=== PATIENT | female | born 1980 | race Caucasian/White ===

== ENCOUNTER 2016-08-27 12:19 | Emergency (ER) | payer OTHER ==
[~2016-08-27] VITALS: Ht 167.6 cm; Wt 77.2 kg
[2016-08-27 12:31] VITALS: BP 101/65
[2016-08-27] MEDS ORDERED: IV NORMAL SALINE 1,000ML 1,000 ML IV SCH (13:19)
--- NOTE | 2016-08-27 13:19 | PHYS DOC ---
General Chief Complaint: abdominal discomfort Stated Complaint: abdominal pain Time Seen by MD: 12:22 Source: patient Exam Limitations: no limitations Problems: History of Present Illness Initial Comments Patient is a 36-year-old female currently 29 weeks gestation to the emergency department complaining of abdominal discomfort. 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 This she' s had no issues, she says the past 2-3 days she and her have been having abdominal discomfort. Her spouse has had diarrhea she's had some nausea but no vomiting or diarrhea. Due to her dyspepsia as she hasn't been eating or drinking much and today has some lower abdominal discomfort. She has noticed that her urine is dark today but denies odor/dysuria/hematuria. She denies any vaginal symptoms or contractions, denies chest pain shortness of breath headache or focal weakness.. Timing/Duration: other (2-3 days) Severity: mild Modifying Factors: worse with movement, improves with rest Associated Symptoms: loss of appetite, malaise, nausea/vomiting, other Allergies: Coded Allergies: No Known Drug Allergies (Unverified , 08/27/16) Past Medical History Medical History: other (asthma, preeclampsia) Surgical History: no surgical history Para: 2 : 3 LMP (Females 10-50): (29 wks) Social History Smoker: non-smoker Alcohol: occasionally (when not ) Drugs: none Review of Systems Constitutional: denies chills, denies diaphoresis, denies fever, malaise Respiratory: denies cough, denies shortness of breath, denies wheezing Cardiovascular: denies chest pain, denies palpitations, denies syncope Gastrointestinal: see HPI, abdominal pain, denies constipation, denies diarrhea , nausea, denies vomiting Genitourinary: see HPI Musculoskeletal: denies back pain, denies joint swelling, denies neck pain Psychiatric/Neurological: denies headache, denies numbness, denies paresthesia Hematologic/Lymphatic: denies blood clots, denies easy bleeding, denies easy bruising Physical Exam General Appearance: WD/WN, no apparent distress Eyes: bilateral eye normal inspection, bilateral eye PERRL, bilateral eye EOMI Ear, Nose, Throat: hearing grossly normal, normal ENT inspection, normal pharynx (mucous membranes dry, patient's lips are dry and cracked) Neck: non-tender, supple Respiratory: normal breath sounds, no respiratory distress Cardiovascular: normal peripheral pulses, regular rate, rhythm Gastrointestinal: normal bowel sounds, non tender, soft (gravid consistent with dates) Rectal: deferred Back: no vertebral tenderness, CVA tenderness (R) Extremities: normal range of motion, non-tender, normal inspection, no pedal edema, no calf tenderness 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 These findings along with R CVAT and reported history c/w right pyelonephritis. Patient is feeling much better and her color improved lips now moist after 1 L normal saline IV. I discussed hydration and treatment plan as well as signs and symptoms to monitor patient expressed agreement and understanding. Departure Time of Disposition: 14:23 Disposition: 01 HOME, SELF-CARE Diagnosis: Right Pyelonephritis, incidental Condition: STABLE Patient Instructions: Abdominal Pain During , [id number], Pyelonephritis, Adult, [id number] Additional Instructions: Continue vitamins as well as aggressive hydration with Gatorade and water. Rest, no strenuous activity. Prescription: Pravin Chapman Follow-up with your doctor on Thursday for urine culture results and recheck. Return to the ED with new or changing symptoms. ROWAN MCKEON DO Aug 27, 2016 13:19
[2016-08-27 13:47] LABS: BASO % 0 % (0-3); EOS % 0 % (0-3); HEMATOCRIT 37.3 % (36.0-47.0); HEMOGLOBIN 12.6 g/dL (12.0-15.5); LYMPH % 16 % (24-48); MEAN CORPUSCULAR HEMOGLOBIN 31 pg (25-35); MEAN CORPUSCULAR HGB CONC 34 g/dL (31-37); MEAN CORPUSCULAR VOLUME 93 fL (79-100); MONO # 0.5 x10^3/uL (0.0-1.1); MONO % 8 % (0-9); NEUT # 4.9 x10^3uL (1.8-7.7); NEUT % 76 % (31-73); PLATELET COUNT 181 x10^3/uL (140-400); RED BLOOD COUNT 4.01 x10^6/uL (3.50-5.40); RED CELL DISTRIBUTION WIDTH 13.8 % (11.5-14.5); WHITE BLOOD COUNT 6.5 x10^3/uL (4.0-11.0)
[2016-08-27 13:55] LABS: BACTERIA,URINE MOD /HPF (0-FEW); BILIRUBIN,URINE NEG (NEG); CLARITY,URINE HAZY; COLOR,URINE YELLOW; GLUCOSE,URINE NEG (NEG); NITRITE,URINE NEG (NEG); RBC,URINE 0 /HPF (0-2); SQUAMOUS EPITHELIAL CELL,UR MOD /LPF; UROBILINOGEN,URINE 2 mg/dL (0.2 mg/dL)
[2016-08-27 13:57] LABS: ALBUMIN 2.8 g/dL (3.4-5.0); ALBUMIN/GLOBULIN RATIO 0.8 (1.0-1.7); CALCIUM 8.6 mg/dL (8.5-10.1); CREATININE 0.5 mg/dL (0.6-1.0); GFR 140.4; POTASSIUM 3.6 mmol/L (3.5-5.1); TOTAL BILIRUBIN 0.4 mg/dL (0.2-1.0); TOTAL PROTEIN 6.5 g/dL (6.4-8.2)
[2016-08-27] MEDS ORDERED: NITROFURANTOIN MONOHYD/M-CRYST 100 MG CAPSULE. PO ONE (14:45)
[2016-08-27] MEDS ORDERED: ONDANSETRON ODT 4 MG TAB.RAPDIS PO ONE (14:45)
== END 2016-08-27 14:54 | disposition home or self-care (01) ==
LOC: ER 12:19
DX: O23.03 Infections of kidney in pregnancy, third trimester (principal); R10.9 Unspecified abdominal pain; O14.93 Unspecified pre-eclampsia, third trimester; J45.909 Unspecified asthma, uncomplicated; Z3A.29 29 weeks gestation of pregnancy
CPT/HCPCS: 36415; 80053; 81001; 85027; 87086; 94640; 96360; 99284-25; J7030

== ENCOUNTER 2019-01-25 09:34 | Emergency (ER) | payer OTHER ==
[~2019-01-25] VITALS: Ht 167.6 cm; Wt 71.2 kg
[2019-01-25] MEDS ORDERED: IPRATRPIUM/ALBUTEROL 0.5/2.5MG 3 ML NEBU. NEB ONE (10:15)
[2019-01-25 10:43] LABS: BASO % 1 % (0-3); EOS # 0.1 x10^3/uL (0.0-0.7); EOS % 2 % (0-3); HEMOGLOBIN 14.2 g/dL (12.0-15.5); LYMPH # 1.8 x10^3/uL (1.0-4.8); LYMPH % 27 % (24-48); MEAN CORPUSCULAR HEMOGLOBIN 30 pg (25-35); MEAN CORPUSCULAR HGB CONC 33 g/dL (31-37); MEAN CORPUSCULAR VOLUME 91 fL (79-100); MONO # 0.3 x10^3/uL (0.0-1.1); MONO % 5 % (0-9); NEUT # 4.3 x10^3uL (1.8-7.7); NEUT % 65 % (31-73); PLATELET COUNT 250 x10^3/uL (140-400); RED BLOOD COUNT 4.75 x10^6/uL (3.50-5.40); RED CELL DISTRIBUTION WIDTH 13.1 % (11.5-14.5); WHITE BLOOD COUNT 6.5 x10^3/uL (4.0-11.0)
[2019-01-25 10:55] LABS: ALBUMIN 3.8 g/dL (3.4-5.0); ALBUMIN/GLOBULIN RATIO 1.2 (1.0-1.7); CALCIUM 8.8 mg/dL (8.5-10.1); CREATININE 0.7 mg/dL (0.6-1.0); GFR 94.2; POTASSIUM 4.1 mmol/L (3.5-5.1); TOTAL BILIRUBIN 0.6 mg/dL (0.2-1.0)
--- NOTE | 2019-01-25 10:58 | RAD ---
Study: PORTABLE CHEST 1V Indication: Chest discomfort. Comparison: None. Findings: No pneumothorax, lobar infiltrate or pleural effusion. The cardiomediastinal silhouette is within normal limits for size. Grossly intact osseous structures. No free air seen under the diaphragm. Impression: No acute radiographic abnormality of the chest. Electronically signed by: LIVIER RODRIGUEZ MD (01/25/2019 10:54 AM) [facility]
[2019-01-25 11:00] VITALS: BP 112/65
--- NOTE | 2019-01-25 11:17 | PHYS DOC ---
Past History Past Medical History: Asthma, Other Past Surgical History: No Surgical History, Alcohol Use: Occasionally Drug Use: None Adult General Chief Complaint Chief Complaint: ASTHMA HPI HPI Patient is a 38-year-old female who presents with complaint of chest tightness and some shortness of breath for the last few days. She states that symptoms started this past Thursday and she is been using her inhaler but has not had any relief. She rates the discomfort in her chest at about a 4 out of 10 and states that is really just tightness, making her feel like she is not able to get a big enough breath in. She does admit to mild cough but states this no more than usual. She denies any fever.[] Review of Systems Review of Systems Constitutional: Denies fever or chills [] Respiratory: Denies cough or shortness of breath [] Cardiovascular: No additional information not addressed in HPI [] GI: Denies abdominal pain, nausea, vomiting or diarrhea [] Musculoskeletal: Denies back pain or joint pain [] Integument: Denies rash or skin lesions [] Neurologic: Denies headache, focal weakness or sensory changes [] All other systems were reviewed and found to be within normal limits, except as documented in this note. Current Medications Current Medications Current Medications Medications (Trade) Dose Ordered Sig/Louisa Start Time Stop Time Status Last Admin Dose Admin Albuterol/ Ipratropium (Duoneb) 3 ml 1X ONCE 01/25/19 10:15 01/25/19 10:16 DC 01/25/19 10:40 3 ML Allergies Allergies Allergies Coded Allergies Type Severity Reaction Last Updated Verified No Known Drug Allergies 08/27/16 No Physical Exam Physical Exam Constitutional: Well developed, well nourished, no acute distress, non-toxic appearance. [] HENT: Normocephalic, atraumatic, bilateral external ears normal, oropharynx moist, no oral exudates, nose normal. [] Eyes: PERRLA, EOMI, conjunctiva normal, no discharge. [] Neck: Normal range of motion, no tenderness, supple. [] Cardiovascular: Regular rate and rhythm[] Lungs & Thorax: Bilateral breath sounds clear to auscultation [] Abdomen: Bowel sounds normal, soft, no tenderness. [] Skin: Warm, dry, no erythema, no rash. [] Extremities: No tenderness, no cyanosis, no clubbing, ROM intact, no edema. [] Neurologic: Alert and oriented X 3, no focal deficits noted. [] Current Patient Data Vital Signs Vital Signs Date Time Temp Pulse Resp B/P (MAP) Pulse Ox O2 Delivery O2 Flow Rate FiO2 01/25/19 11:00 83 16 112/65 (81) 100 Room Air 01/25/19 10:31 97.9 Lab Results Laboratory Tests Test 01/25/19 10:17 White Blood Count 6.5 x10^3/uL (4.0-11.0) Red Blood Count 4.75 x10^6/uL (3.50-5.40) Hemoglobin 14.2 g/dL (12.0-15.5) Hematocrit 43.0 % (36.0-47.0) Mean Corpuscular Volume 91 fL (79-100) Mean Corpuscular Hemoglobin 30 pg (25-35) Mean Corpuscular Hemoglobin Concent 33 g/dL (31-37) Red Cell Distribution Width 13.1 % (11.5-14.5) Platelet Count 250 x10^3/uL (140-400) Neutrophils (%) (Auto) 65 % (31-73) Lymphocytes (%) (Auto) 27 % (24-48) Monocytes (%) (Auto) 5 % (0-9) Eosinophils (%) (Auto) 2 % (0-3) Basophils (%) (Auto) 1 % (0-3) Neutrophils # (Auto) 4.3 x10^3uL (1.8-7.7) Lymphocytes # (Auto) 1.8 x10^3/uL (1.0-4.8) Monocytes # (Auto) 0.3 x10^3/uL (0.0-1.1) Eosinophils # (Auto) 0.1 x10^3/uL (0.0-0.7) Basophils # (Auto) 0.0 x10^3/uL (0.0-0.2) Sodium Level 141 mmol/L (136-145) Potassium Level 4.1 mmol/L (3.5-5.1) Chloride Level 106 mmol/L (98-107) Carbon Dioxide Level 27 mmol/L (21-32) Anion Gap 8 (6-14) Blood Urea Nitrogen 8 mg/dL (7-20) Creatinine 0.7 mg/dL (0.6-1.0) Estimated GFR (Cockcroft-Gault) 94.2 BUN/Creatinine Ratio 11 (6-20) Glucose Level 93 mg/dL (70-99) Calcium Level 8.8 mg/dL (8.5-10.1) Total Bilirubin 0.6 mg/dL (0.2-1.0) Aspartate Amino Transferase (AST) 17 U/L (15-37) Alanine Aminotransferase (ALT) 34 U/L (14-59) Alkaline Phosphatase 65 U/L (46-116) Troponin I Quantitative < 0.017 ng/mL (0-0.055) Total Protein 7.0 g/dL (6.4-8.2) Albumin 3.8 g/dL (3.4-5.0) Albumin/Globulin Ratio 1.2 (1.0-1.7) EKG EKG EKG demonstrates normal sinus rhythm with rate of 74.[] Radiology/Procedures Radiology/Procedures [] Impressions: PROCEDURE: PORTABLE CHEST 1V Study: PORTABLE CHEST 1V Indication: Chest discomfort. Comparison: None. Findings: No pneumothorax, lobar infiltrate or pleural effusion. The cardiomediastinal silhouette is within normal limits for size. Grossly intact osseous structures. No free air seen under the diaphragm. Impression: No acute radiographic abnormality of the chest. Electronically signed by: LIVIER RODRIGUEZ MD (01/25/2019 10:54 AM) [facility] Course & Med Decision Making Course & Med Decision Making Pertinent Labs and Imaging studies reviewed. (See chart for details) [] Dragon Disclaimer Dragon Disclaimer This electronic medical record was generated, in whole or in part, using a voice recognition dictation system. Departure Departure: Impression: Primary Impression: Asthma Additional Impression: Costochondral chest pain Disposition: 01 HOME, SELF-CARE Condition: STABLE Referrals: SAILAJA JACKSON DO, MPH (PCP) Patient Instructions: Asthma, Adult, Costochondritis Scripts Methylprednisolone (MEDROL) 4 Mg Tab.ds.pk 1 PKG PO UD for inflammation, #1 PKG Prov: JORGE MORRISON Jr., DO 01/25/19 Naproxen (NAPROSYN) 500 Mg Tablet 1 TAB PO BID PRN for PAIN, #20 TAB 0 Refills Prov: JORGE MORRISON Jr., DO 01/25/19 Problem Qualifiers Primary Impression: Asthma Asthma severity: unspecified severity Asthma persistence: unspecified Asthma complication type: uncomplicated Qualified Codes: J45.909 - Unspecified asthma, uncomplicated JORGE MORRISON Jr. DO Jan 25, 2019 11:17
[2019-01-25] MEDS ORDERED: NAPR-683 PO (11:34)
[2019-01-25] MEDS ORDERED: METH4TAB2 PO (11:34)
== END 2019-01-25 11:49 | disposition home or self-care (01) ==
LOC: ER 09:34
DX: J45.909 Unspecified asthma, uncomplicated (principal); R07.89 Other chest pain
CPT/HCPCS: 36415; 71045; 80053; 84484; 85025; 85379; 94640; 99285; J7620

== ENCOUNTER 2019-05-18 13:25 | Emergency (ER) | payer OTHER ==
[~2019-05-18] VITALS: Ht 167.6 cm; Wt 77.2 kg
[~2019-05-18 13:25] MED LIST: METH4TAB2 PO; NAPR-683 PO
[2019-05-18 13:39] VITALS: BP 135/75
[2019-05-18] MEDS ORDERED: AZIT250T PO (14:43)
--- NOTE | 2019-05-18 14:43 | PHYS DOC ---
Past History Past Medical History: Asthma, Other Past Surgical History: , Tubal ligation Alcohol Use: Occasionally Drug Use: None Adult General Chief Complaint Chief Complaint: FLU SYMPTOM HPI HPI Patient is a 39-year-old female who presents with complaint of sore throat, shortness of breath and mild cough for the last week. Patient states that she developed tightness in her throat, stating that she was having difficulty swallowing and breathing late this morning at home and became very concerned and felt she needed to be seen right away. Patient also reports subjective fever.[] Review of Systems Review of Systems Constitutional: Positive fever and chills [] HENT: Positive sore throat [] Respiratory: Positive cough and shortness of breath [] Cardiovascular: No additional information not addressed in HPI [] GI: Denies abdominal pain, nausea, vomiting or diarrhea [] Integument: Denies rash or skin lesions [] Neurologic: Denies headache, focal weakness or sensory changes [] All other systems were reviewed and found to be within normal limits, except as documented in this note. Allergies Allergies Allergies Coded Allergies Type Severity Reaction Last Updated Verified No Known Drug Allergies 08/27/16 No Physical Exam Physical Exam Constitutional: Well developed, well nourished, no acute distress, non-toxic appearance. [] HENT: Normocephalic, atraumatic, bilateral external ears normal, with pharyngeal erythema. [] Neck: Normal range of motion, no tenderness, supple, no stridor. [] Cardiovascular:Heart rate regular rhythm, no murmur [] Lungs & Thorax: Bilateral breath sounds clear to auscultation [] Extremities: No tenderness, no cyanosis, no clubbing, ROM intact, no edema. [] Neurologic: Alert and oriented X 3, normal motor function, normal sensory function, no focal deficits noted. [] Current Patient Data Vital Signs Vital Signs Date Time Temp Pulse Resp B/P (MAP) Pulse Ox O2 Delivery O2 Flow Rate FiO2 05/18/19 13:39 98.2 101 18 135/75 (95) 98 EKG EKG [] Radiology/Procedures Radiology/Procedures [] Course & Med Decision Making Course & Med Decision Making Pertinent Labs and Imaging studies reviewed. (See chart for details) [] Dragon Disclaimer Dragon Disclaimer This electronic medical record was generated, in whole or in part, using a voice recognition dictation system. Departure Departure: Impression: Primary Impression: Upper respiratory infection Disposition: HOME, SELF-CARE Condition: STABLE Referrals: PCP,NO (PCP) Patient Instructions: Upper Respiratory Infection, Adult Scripts Azithromycin (ZITHROMAX) 250 Mg Tablet 1 PKG PO UD for infection, #6 TAB Prov: JORGE MORRISON Jr. DO 05/18/19 Problem Qualifiers Primary Impression: Upper respiratory infection URI type: unspecified URI Qualified Codes: J06.9 - Acute upper respiratory infection, unspecified JORGE MORRISON Jr. DO May 18, 2019 14:43
== END 2019-05-18 15:08 | disposition home or self-care (01) ==
LOC: ER 13:25
DX: J06.9 Acute upper respiratory infection, unspecified (principal); J45.909 Unspecified asthma, uncomplicated
CPT/HCPCS: 87070; 87880; 99283

== ENCOUNTER → 2020-07-09 | Outpatient (CLI) | payer OTHER ==
[~2020-07-09] MED LIST changes: +AZIT250T PO
--- NOTE | 2020-07-09 13:33 | RAD ---
INDICATION: Reason: LUMP ON RT POSTERIOR KNEE / Spl. Instructions: / History: COMPARISON: None. FINDINGS: Focused ultrasound images are obtained of the right popliteal fossa region. Fatty and muscular tissue is seen as well as the patient's vessels. No fluid collection or mass is se en IMPRESSION: * No fluid collection or mass is identified at the popliteal fossa. Electronically signed by: Edmond Brooks MD (07/09/2020 1:30 PM) [id number]
== END ==
LOC: US 12:54
PROVIDERS: ATTEND Family Medicine
DX: R22.41 Localized swelling, mass and lump, right lower limb (principal)
CPT/HCPCS: 76881